=== PATIENT | male | born 1955 | race Hispanic/Latino ===

== ENCOUNTER 2022-12-23 22:13 | Emergency (ER) | payer OTHER ==
[~2022-12-23] VITALS: Ht 160 cm; Wt 74.8 kg
[2022-12-23] MEDS ORDERED: KETOROLAC 60 MG VIAL (30MG/ML) IM ONE (23:30)
[2022-12-23] MEDS ORDERED: CYCL5TAB PO (23:48)
[2022-12-24 00:33] VITALS: BP 128/64
== END 2022-12-24 00:57 | disposition home or self-care (01) ==
LOC: EDH 22:13
DX: G89.29 Other chronic pain (principal); M54.50 Low back pain, unspecified; M25.511 Pain in right shoulder
CPT/HCPCS: 99284; 72100; 73030; 96372; J1885